=== PATIENT | male | born 1960 | race African-American/Black ===

== ENCOUNTER → 2016-08-31 | Outpatient (CLI) | payer OTHER ==
[~2016-08-31] MED LIST: ASPIRIN81 M2 PO; FISH OIL 1,2001 CAP PO; KEFLEX250 M1 PO; MOBIC PO; MULTI-VITAMIN1 EAC1 PO; NAPROXEN PO; NORVASC PO; OMEPRAZOLE20 M2 PO; ORUDIS75 M1 PO; PEN-VEE K PO
--- NOTE | ~2016-08-31 | CR230 ---
[facility] A Service of [facility] & [facility] RADIOLOGY TEXT RESULTS PATIENT: SHELBIE MULLINS LOCATION: [facility] : 64 UNIT #: [id number] AGE: [address]: THEE STEIN SEX: M ORDER DR: [id number] [facility] [address] [place], [place] [address] [id number] O MR#: [id number] Acc #: [id number] NAME: SHELBIE MULLINS : 1960 SEX: M STUDY DATE/TIME: 08/31/2016 15:06 UNIT: [facility] ROOM: STUDY DESCRIPTION: CR Shoulder Min 2 View Rt Attending Physician: Sandra Kyle Ordering Physician: Roberta Mcclendon M.D. Primary Care Physician: Primary Care Physician No MEDICAL IMAGING REPORT This report is preliminary unless electronic signature is present EXAM Right shoulder, 2 views, date of study 08/31 COMPARISON 10/28/13 HISTORY Right shoulder pain for 6 months. FINDINGS Two views are submitted. The bony elements are intact and in normal alignment. Joint spaces and articular surfaces are preserved. CONCLUSION Normal. No change from the study of 10/28/13. Dictated by... Sebastian Hale M.D. THIS IS AN ELECTRONICALLY VERIFIED REPORT Sebastian Hale M.D. at 09/05/2016 7:15 AM ALONZO/mary TD: 09/01/2016 16:16 JOB #: [id number] MEDICAL IMAGING REPORT Page 1 of 1 COPY
--- NOTE | ~2016-08-31 | CR181 ---
[facility] A Service of [facility] & [facility] RADIOLOGY TEXT RESULTS PATIENT: SHELBIE MULLINS LOCATION: [facility] : 64 UNIT #: [id number] AGE: [address]: THEE STEIN SEX: M ORDER DR: [id number] [facility] [address] [place], [place] [address] [id number] O MR#: [id number] Acc #: [id number] NAME: SHELBIE MULLINS : 1960 SEX: M STUDY DATE/TIME: 08/31/2016 15:03 UNIT: [facility] ROOM: STUDY DESCRIPTION: CR Lumbar Spine 2 or 3 Views Attending Physician: Sandra Kyle Ordering Physician: Roberta Mcclendon M.D. Primary Care Physician: Primary Care Physician No MEDICAL IMAGING REPORT This report is preliminary unless electronic signature is present EXAM Lumbosacral spine, 3 views dated 08/31/16 COMPARISON 05/15/15 HISTORY Low back pain for 6 months. FINDINGS AP, lateral and spot views are obtained and compared directly to the previous radiographs of 05/15/15. Lumbar alignment is normal. Disc space and vertebral body height is maintained. CONCLUSION Negative lumbar spine. No change. Dictated by... Sebastian Hale M.D. THIS IS AN ELECTRONICALLY VERIFIED REPORT Sebastian Hale M.D. at 09/05/2016 7:15 AM ALONZO/mary TD: 09/01/2016 16:12 JOB #: [id number] MEDICAL IMAGING REPORT Page 1 of 1 COPY
--- NOTE | ~2016-08-31 | CR58 ---
[facility] A Service of [facility] & [facility] RADIOLOGY TEXT RESULTS PATIENT: SHELBIE MULLINS LOCATION: [facility] : 64 UNIT #: [id number] AGE: [address]: THEE STEIN SEX: M ORDER DR: [id number] [facility] [address] [place], [place] [address] [id number] O MR#: [id number] Acc #: [id number] NAME: SHELBIE MULLINS : 1960 SEX: M STUDY DATE/TIME: 08/31/2016 15:08 UNIT: [facility] ROOM: STUDY DESCRIPTION: CR Cervical Spine 2 or 3 Views Attending Physician: Sandra Kyle Ordering Physician: Roberta Mcclendon M.D. Primary Care Physician: Primary Care Physician No MEDICAL IMAGING REPORT This report is preliminary unless electronic signature is present EXAM Cervical spine HISTORY Neck pain for 6 months. FINDINGS Three views are submitted. The study shows disc space narrowing at C3 through C7. There is marginal spur formations at C3 through C7. The alignment is normal without subluxation. There is facet disease at C7-T1. CONCLUSION Multilevel degenerative disc disease from C3 through C7. Dictated by... Sebastian Hale M.D. THIS IS AN ELECTRONICALLY VERIFIED REPORT Sebastian Hale M.D. at 09/05/2016 7:15 AM ALONZO/mary TD: 09/01/2016 16:17 JOB #: [id number] MEDICAL IMAGING REPORT Page 1 of 1 COPY
== END | disposition home or self-care (01) ==
LOC: CRAD 14:45
DX: M54.5 Low back pain (principal); M54.2 Cervicalgia; M25.511 Pain in right shoulder; M50.31 Other cervical disc degeneration, high cervical region; M50.321 Other cervical disc degeneration at C4-C5 level; M50.322 Other cervical disc degeneration at C5-C6 level; M50.323 Other cervical disc degeneration at C6-C7 level
CPT/HCPCS: 72040; 72100; 73030